=== PATIENT | female | born 1975 | race Caucasian/White ===

== ENCOUNTER 2016-08-09 21:59 | Emergency (ER) | payer OTHER | END 2016-08-10 00:07 | disposition home or self-care (01) | LOC: ER 21:59 | DX: N83.201 Unspecified ovarian cyst, right side (principal); E11.9 Type 2 diabetes mellitus without complications; F31.9 Bipolar disorder, unspecified; G43.909 Migraine, unspecified, not intractable, without status migrainosus; F17.210 Nicotine dependence, cigarettes, uncomplicated; Z98.51 Tubal ligation status; Z88.8 Allergy status to other drugs, medicaments and biological substances; Z87.442 Personal history of urinary calculi | CPT/HCPCS: 36415; 96361; 96374; 96375; J1885 ==

== ENCOUNTER 2016-08-14 20:24 | Emergency (ER) | payer OTHER | END 2016-08-14 22:45 | disposition home or self-care (01) | LOC: ER 20:24 | DX: N83.201 Unspecified ovarian cyst, right side (principal); F31.9 Bipolar disorder, unspecified; E11.9 Type 2 diabetes mellitus without complications; G43.909 Migraine, unspecified, not intractable, without status migrainosus; F17.210 Nicotine dependence, cigarettes, uncomplicated; Z98.51 Tubal ligation status; Z88.8 Allergy status to other drugs, medicaments and biological substances | CPT/HCPCS: 36415; 96374; 96375 ==

== ENCOUNTER 2017-01-18 20:54 | Emergency (ER) | payer SELFPAY | END 2017-01-18 23:55 | disposition home or self-care (01) | LOC: ER 20:54 | DX: J20.9 Acute bronchitis, unspecified (principal); E11.9 Type 2 diabetes mellitus without complications; F31.9 Bipolar disorder, unspecified; G43.909 Migraine, unspecified, not intractable, without status migrainosus; F17.200 Nicotine dependence, unspecified, uncomplicated; Z98.51 Tubal ligation status; Z88.8 Allergy status to other drugs, medicaments and biological substances ==